=== PATIENT | female | born 1960 | race Caucasian/White ===

== ENCOUNTER 2017-11-19 07:45 | Emergency (ER) | payer OTHER ==
[2017-11-19 08:40] LABS: URINE BLOOD (Dip) POC 3+ (NEGATIVE); URINE GLUCOSE (Dip) POC Negative (NEGATIVE); URINE KETONES (Dip) POC Negative (NEGATIVE); URINE LEUKOCYTE EST (Dip) POC 1+ (NEGATIVE); URINE NITRITE (Dip) POC Negative (NEGATIVE); URINE TOTAL PROTEIN POC 3+ (NEGATIVE)
== END 2017-11-19 10:04 | disposition home or self-care (01) ==
LOC: FTE 07:45
DX: N39.0 Urinary tract infection, site not specified (principal); E11.9 Type 2 diabetes mellitus without complications; I10 Essential (primary) hypertension
CPT/HCPCS: 81003; 87086; 99283